=== PATIENT | female | born 1970 | race Caucasian/White ===

== ENCOUNTER → 2019-03-07 | Outpatient (CLI) | payer BC ==
--- NOTE | 2019-03-07 11:18 | KCIC ---
Bilateral digital screening mammograms: Reason for examination: Routine screening. Comparison is made to previous study dated 01/27/2014. Interpretation was made with the benefit of CAD. The skin and nipples show no abnormalities. No abnormal axillary lymph nodes are seen. The breast parenchyma shows scattered fibroglandular density. (Breast density: Category B.) There has been some parenchymal involution since previous examination. There are focal areas of nodularity present in the lateral left breast and in the lateral right breast. These may represent superimposed tissues but recommend further evaluation with coned compression views and ultrasound. There are no suspicious calcifications seen. Impression: Parenchymal involution since previous exam. Areas of nodularity seen in the lateral breasts bilaterally which may reflect superimposed tissues. Further evaluation however with cone compression views and ultrasound is recommended. BI-RADS Category 0: Incomplete. Needs additional imaging evaluation. "Our facility is accredited by the [employer] Mammography [employer]." This patient's information has been entered into a reminder system for the patient to be notified with the results of her examination and a target date for the next mammogram. Electronically signed by: Judith Vickers MD (03/07/2019 11:15 AM) [id number]
== END | disposition home or self-care (01) ==
LOC: KCIC MAMMO 10:39
PROVIDERS: ATTEND Family Medicine
DX: Z12.31 Encounter for screening mammogram for malignant neoplasm of breast (principal)
CPT/HCPCS: 77067

== ENCOUNTER → 2019-03-18 | Outpatient (CLI) | payer BC ==
--- NOTE | 2019-03-18 12:17 | KCIC ---
Bilateral diagnostic digital mammograms: Reason for examination: Nodular asymmetries on screening mammogram. Coned compression views were obtained in CC and lateral projections of the right breast in CC and oblique projections of the left breast. With these additional views, there is still some asymmetric parenchyma seen at approximately the 12:00 position posteriorly in the left breast. This may represent superimposed tissues. No definite abnormality seen with additional views of the right breast. Further evaluation with ultrasound will follow. IMPRESSION: There is still some mild asymmetry in the 12:00 position posteriorly on the left breast. No suspicious abnormalities are seen in the right breast. Ultrasound to follow. BI-RADS Category 0: Incomplete. Needs additional imaging evaluation. Bilateral breast ultrasound: Ultrasound examination was performed bilaterally in the areas of mammographic concern and at the axilla. The right breast shows no discrete cystic or solid nodules. No abnormal appearing lymph nodes are seen in the axilla. The left breast some patchy fibroglandular tissue but no discrete cystic or solid nodules or architectural distortions. No abnormal appearing lymph nodes are seen axilla. IMPRESSION: No suspicious abnormalities evident sonographically. Recommend routine mammographic follow-up. BI-RADS Category 2: Benign. "Our facility is accredited by the [employer] Mammography [employer]." This patient's information has been entered into a reminder system for the patient to be notified with the results of her examination and a target date for the next mammogram. Electronically signed by: Judith Vickers MD (03/18/2019 12:14 PM) [email or web address]
== END | disposition home or self-care (01) ==
LOC: KCIC MAMMO 08:06
PROVIDERS: ATTEND Family Medicine
DX: N64.89 Other specified disorders of breast (principal)
CPT/HCPCS: 76641; 77066

== ENCOUNTER → 2020-04-13 | Outpatient (CLI) | payer BC ==
--- NOTE | 2020-04-13 18:19 | KCIC ---
BILATERAL SCREENING MAMMOGRAM History: Routine screening. Comparison: Bilateral mammogram March 07, 2019. Technique: Routine digital mammogram views were obtained. Findings: Breast Tissue Density B : There are scattered areas of fibroglandular density. Parenchymal asymmetries are stable. There are no dominant masses, suspicious microcalcifications or architectural distortion. IMPRESSION: No mammographic evidence of malignancy. Recommend routine screening. BI-RADS category 2: Benign findings. The images were reviewed with computer aided detection. Patient information is entered into the reminder system with a target due date for the next screening mammogram. Mammography is the most sensitive method for finding small breast cancers, but it does not detect the m all and is not a substitute for careful clinical examination. A negative mammogram does not negate a clinically suspicious finding and should not result in delay in biopsying a clinically suspicious a bnormality. "Our facility is accredited by the [employer] Mammography [employer]." Electronically signed by: Quinton Thomas MD (04/13/2020 6:16 PM) [email or web address]
== END ==
LOC: KCIC MAMMO 10:49
PROVIDERS: ATTEND Family Medicine
DX: Z12.31 Encounter for screening mammogram for malignant neoplasm of breast (principal)
CPT/HCPCS: 77067

== ENCOUNTER → 2021-05-01 | Outpatient (CLI) | payer BC ==
--- NOTE | 2021-05-01 09:57 | KCIC ---
Bilateral digital screening mammograms: Reason for examination: Routine screening. Comparison is made to previous studies dated back to 01/27/2014. Interpretation was made with the benefit of CAD. The skin and nipples show no abnormalities. No abnormal axillary lymph nodes are seen. The breast par enchyma shows scattered fibroglandular density. (Breast density: Category B.) There appears to be ismael e increased nodular parenchymal asymmetry at the 12:00 position of the left breast 6 cm posterior to the nipple. Further evaluation with coned compression views in CC and lateral projections and left br east ultrasound recommended. There are no other new dominant masses, suspicious calcifications or arc hitectural distortions. Impression: Increased nodular parenchymal asymmetry at the 12:00 position of the left breast 6 cm from the nipple . Recommend further evaluation with coned compression views in CC and lateral projections and left br east ultrasound. BI-RADS Category 0: Incomplete. Needs additional imaging evaluation. "Our facility is accredited by the [employer] Mammography Program." This patient's information has been entered into a reminder system for the patient to be notified wit h the results of her examination and a target date for the next mammogram. Electronically signed by: Judith Vickers MD (05/01/2021 9:55 AM) [email or web address]
== END ==
LOC: KCIC MAMMO 08:45
PROVIDERS: ATTEND Family Medicine
DX: Z12.31 Encounter for screening mammogram for malignant neoplasm of breast (principal)
CPT/HCPCS: 77067

== ENCOUNTER → 2021-05-22 | Outpatient (CLI) | payer BC ==
--- NOTE | 2021-05-22 12:05 | KCIC ---
Left breast diagnostic digital mammograms: Reason for examination: Patchy asymmetry on screening mammogram. Comparison is made to previous study dated 05/01/2021. Coned compression views were obtained the left breast in CC and lateral projections. There continues to be a small patch of parenchymal asymmetry at the 12:00 B position. No other focal abnormalities are seen. IMPRESSION: Continued presence of a small focus of parenchymal asymmetry at the 12:00 B position of the left [address]. Ultrasound to follow. BI-RADS Category 0: Incomplete. Needs additional imaging evaluation. Left breast ultrasound: Ultrasound examination of the left breast and axilla was performed. At the 12:00 position 4.5 cm from the nipple, there is a dense patch of fibroglandular tissue with a benign appearance. At the 12:30 position 7 cm from the nipple, there is a 9.7 x 7.2 mm hypoechoic fib rocystic type lesion. No other cystic or solid nodules are seen. No abnormal appearing lymph nodes ar e seen in the left axilla. IMPRESSION: 9.7 mm benign-appearing fibrocystic type nodule at the 12:30 position 7 cm from the nipple. No suspicious abnormality seen. Recommend 6 month follow-up with left breast mammograms and ultrasound. BI-RADS Category 3: Probably Benign. "Our facility is accredited by the [employer] Mammography [employer]." This patient's information has been entered into a reminder system for the patient to be notified wit h the results of her examination and a target date for the next mammogram. Electronically signed by: Judith Vickers MD (05/22/2021 12:02 PM) [email or web address]
== END ==
LOC: KCIC MAMMO 08:48
PROVIDERS: ATTEND Family Medicine
DX: N63.21 Unspecified lump in the left breast, upper outer quadrant (principal)
CPT/HCPCS: 76641; 77065